=== PATIENT | male | born 1955 | race Caucasian/White ===

== ENCOUNTER → 2021-03-15 | Outpatient (CLI) | payer BC, OTHER | LOC: EXRD 14:29 | DX: N18.31 Chronic kidney disease, stage 3a (principal); N28.1 Cyst of kidney, acquired; R16.0 Hepatomegaly, not elsewhere classified | CPT/HCPCS: 76775 ==

== ENCOUNTER → 2021-05-31 | Outpatient (CLI) | payer BC, SELFPAY ==
[2021-06-01 10:16] LABS: CREATININE, URINE 59.1 mg/dL (Not Estab.)
== END ==
LOC: LAB 15:35
PROVIDERS: Internal Medicine Nephrology
DX: N18.31 Chronic kidney disease, stage 3a (principal)
CPT/HCPCS: 36415; 80053; 82043; 82570; 84156

== ENCOUNTER → 2021-10-11 | Outpatient (CLI) | payer BC, OTHER | LOC: KOH-I 14:04 | DX: R06.02 Shortness of breath (principal); R91.8 Other nonspecific abnormal finding of lung field | CPT/HCPCS: 71046 ==

== ENCOUNTER 2021-11-01 12:39 | Inpatient (IN) | payer BC, MEDICARE ==
[~2021-11-01] VITALS: Ht 172.7 cm; Wt 124.7 kg
[2021-11-01 13:42] LABS: HEMOGLOBIN 15.4 gm/dl (14.0-17.5); RED BLOOD COUNT 4.96 M/UL (4.20-5.50); WHITE BLOOD COUNT 6.8 K/UL (4.5-11.0)
[2021-11-01 14:20] LABS: BUN/CREATININE RATIO 13 (0-10)
[2021-11-01] MEDS ORDERED: CARVEDILOL6.25 MG PO (16:08)
[2021-11-01] MEDS ORDERED: DILT-XR180 MG PO (16:08)
[2021-11-01] MEDS ORDERED: CETIRIZINE HCL10 MG PO (16:09)
[2021-11-01] MEDS ORDERED: JARDIANCE25 MG PO (16:09)
[2021-11-01] MEDS ORDERED: GABAPENTIN100 MG PO (16:09)
[2021-11-01] MEDS ORDERED: FLOMAX 0.4 MG0.4 MG PO (16:09)
[2021-11-01] MEDS ORDERED: LOSARTAN POTASS50 MG PO (16:10)
[2021-11-02 07:43] LABS: HEMOGLOBIN 14.5 gm/dl (14.0-17.5); RED BLOOD COUNT 4.7 M/UL (4.20-5.50); WHITE BLOOD COUNT 3.6 K/UL (4.5-11.0)
[2021-11-03 06:27] LABS: HEMOGLOBIN 13.3 gm/dl (14.0-17.5); RED BLOOD COUNT 4.32 M/UL (4.20-5.50)
[2021-11-03 06:33] LABS: WHITE BLOOD COUNT 8.3 K/UL (4.5-11.0)
[2021-11-04 05:01] LABS: HEMOGLOBIN 13.1 gm/dl (14.0-17.5); RED BLOOD COUNT 4.32 M/UL (4.20-5.50); WHITE BLOOD COUNT 9.2 K/UL (4.5-11.0)
[2021-11-05 06:30] LABS: HEMOGLOBIN 13.7 gm/dl (14.0-17.5); RED BLOOD COUNT 4.66 M/UL (4.20-5.50); WHITE BLOOD COUNT 10.1 K/UL (4.5-11.0)
[2021-11-05 11:13] LABS: ANTISTREPTOLYSIN O AB 80.6 IU/mL (0.0-200.0); COMPLEMENT C3, SERUM 124 mg/dL (82-167); COMPLEMENT C4, SERUM 22 mg/dL (12-38)
[2021-11-05 12:13] LABS: HBSAG SCREEN Negative (Negative); HEP B CORE AB, TOT Negative (Negative); HEP C VIRUS AB <0.1 (0.0-0.9)
[2021-11-05 13:13] LABS: ANTI-DSDNA ANTIBODIES <1 IU/mL (0-9)
[2021-11-05 14:13] LABS: A/G RATIO 1.2 (0.7-1.7); ALPHA-1-GLOBULIN 0.3 g/dL (0.0-0.4); ALPHA-2-GLOBULIN 0.8 g/dL (0.4-1.0); BETA GLOBULIN 0.8 g/dL (0.7-1.3); GAMMA GLOBULIN 0.8 g/dL (0.4-1.8); GLOBULIN, TOTAL 2.7 g/dL (2.2-3.9); IMMUNOGLOBULIN A, QN, SERUM 250 mg/dL (61-437); IMMUNOGLOBULIN G, QN, SERUM 737 mg/dL (603-1613); IMMUNOGLOBULIN M, QN, SERUM 85 mg/dL (20-172); M-SPIKE Not Observed g/dL (Not Observed); PROTEIN, TOTAL, SERUM 5.7 g/dL (6.0-8.5)
[2021-11-05 16:14] LABS: ATYPICAL PANCA <1:20 titer (Neg:<1:20); CYTOPLASMIC (C-ANCA) <1:20 titer (Neg:<1:20); PERINUCLEAR (P-ANCA) <1:20 titer (Neg:<1:20)
[2021-11-06 07:27] LABS: HEMOGLOBIN 14.8 gm/dl (14.0-17.5); RED BLOOD COUNT 5.01 M/UL (4.20-5.50); WHITE BLOOD COUNT 9.7 K/UL (4.5-11.0)
[2021-11-07 03:37] LABS: HEMOGLOBIN 14.8 gm/dl (14.0-17.5); RED BLOOD COUNT 5.01 M/UL (4.20-5.50)
[2021-11-07 03:46] LABS: WHITE BLOOD COUNT 12.7 K/UL (4.5-11.0)
--- NOTE | 2021-11-08 01:40 | NUR ---
APPROX 2300 AT [employer] [facility] SPOKE WITH DR. HUFF AND VERIFIED THE LOVENOX 80MG DOSE FOR PT. VERIFIED TO ADMINSTERED IT.
[2021-11-08 03:11] LABS: HEMOGLOBIN 14.6 gm/dl (14.0-17.5); RED BLOOD COUNT 4.84 M/UL (4.20-5.50); WHITE BLOOD COUNT 12.8 K/UL (4.5-11.0)
[2021-11-09 09:01] LABS: HEMOGLOBIN 14.9 gm/dl (14.0-17.5); RED BLOOD COUNT 4.9 M/UL (4.20-5.50); WHITE BLOOD COUNT 11.5 K/UL (4.5-11.0)
--- NOTE | 2021-11-09 14:05 | NUR ---
PATIENT AMBULATED WITH ROOM AIR, AND SAT DROPPED TO 82% AND STAYED THERE UNTIL HE SAT BACK DOWN.
[2021-11-09] MEDS ORDERED: DECADRON6 MG PO (15:35)
[2021-11-09] MEDS ORDERED: OMNICEF 300 MG300 MG PO (15:35)
[2021-11-09] MEDS ORDERED: PROTONIX 40 MG40 M1 PO (15:35)
[2021-11-09] MEDS ORDERED: ELIQUIS 5 MG TAB5 MG GT (15:35)
[2021-11-09] MEDS ORDERED: ZITHROMAX500 MG PO (15:35)
[2021-11-09] MEDS ORDERED: IPRAT-ALBUT 0.5-3 ML NEB (15:35)
== END 2021-11-09 16:20 | disposition home or self-care (01) | DRG 177 ==
LOC: ER1 12:39 → MED SURG 4 15:06 → CDU 15:06 → MED SURG 4 16:03
PROVIDERS: Internal Medicine; Internal Medicine Nephrology; Nurse Practitioner; Physician Assistant Medical; ADMIT Internal Medicine
PROC: 8E0ZXY6 Isolation (ICD-10-PCS; principal; 2021-11-01)
PROC: XW033E5 Introduction of Remdesivir Anti-infective into Peripheral Vein, Percutaneous Approach, New Technology Group 5 (ICD-10-PCS; 2021-11-01)
PROC: 3E0333Z Introduction of Anti-inflammatory into Peripheral Vein, Percutaneous Approach (ICD-10-PCS; 2021-11-01)
PROC: XW033H5 Introduction of Tocilizumab into Peripheral Vein, Percutaneous Approach, New Technology Group 5 (ICD-10-PCS; 2021-11-01)
DX: U07.1 COVID-19 (principal); J96.01 Acute respiratory failure with hypoxia; J12.82 Pneumonia due to coronavirus disease 2019; I26.99 Other pulmonary embolism without acute cor pulmonale; N17.9 Acute kidney failure, unspecified; Z68.41 Body mass index [BMI] 40.0-44.9, adult; E78.5 Hyperlipidemia, unspecified; E11.65 Type 2 diabetes mellitus with hyperglycemia; T38.0X5A Adverse effect of glucocorticoids and synthetic analogues, initial encounter; E66.9 Obesity, unspecified; Z83.3 Family history of diabetes mellitus; J45.909 Unspecified asthma, uncomplicated; Z82.49 Family history of ischemic heart disease and other diseases of the circulatory system; I12.9 Hypertensive chronic kidney disease with stage 1 through stage 4 chronic kidney disease, or unspecified chronic kidney disease; N18.30 Chronic kidney disease, stage 3 unspecified; E11.22 Type 2 diabetes mellitus with diabetic chronic kidney disease; Z23 Encounter for immunization; R80.9 Proteinuria, unspecified
CPT/HCPCS: 36415; 36600; 71045; 78580; 80048; 80053; 81001; 82550; 82553; 82570; 82784; 82803; 82962; 83520; 83605; 83735; 83874; 83880; 83883; 84100; 84133; 84155; 84156; 84165; 84300; 84439; 84443; 84484; 85025; 85027; 85379; 85652; 86038; 86060; 86140; 86160; 86162; 86225; 86256; 86334; 86704; 86706; 86708; 86803; 87040; 87340; 93005; 93970; 94640; 94664; 94760; 96374; 97110-GP-CQ; 97116; 97116-GP-CQ; 97161; 97165; 97530-GP-CQ; 99285; A9540; J0248; J0456; J0696; J1100; J1650; J1940; J7030; P9047; Q0249; U0002

== ENCOUNTER → 2021-11-12 | Outpatient (CLI) | payer BC, MEDICARE ==
[~2021-11-12] MED LIST: CARVEDILOL6.25 MG PO; CETIRIZINE HCL10 MG PO; DECADRON6 MG PO; DILT-XR180 MG PO; ELIQUIS 5 MG TAB5 MG GT; FLOMAX 0.4 MG0.4 MG PO; GABAPENTIN100 MG PO; IPRAT-ALBUT 0.5-3 ML NEB; JARDIANCE25 MG PO; LOSARTAN POTASS50 MG PO; OMNICEF 300 MG300 MG PO; PROTONIX 40 MG40 M1 PO; ZITHROMAX500 MG PO
[2021-11-12 14:25] LABS: HEMOGLOBIN 15.7 gm/dl (14.0-17.5); RED BLOOD COUNT 5.14 M/UL (4.20-5.50); WHITE BLOOD COUNT 6.4 K/UL (4.5-11.0)
== END ==
LOC: LAB 13:19
PROVIDERS: Student in an Organized Health Care Education/Training Program
DX: U07.1 COVID-19 (principal)
CPT/HCPCS: 36415; 80053; 85025

== ENCOUNTER → 2022-01-16 | Outpatient (CLI) | payer BC, MEDICARE | LOC: HEART 5 14:58 | DX: R06.02 Shortness of breath (principal) | CPT/HCPCS: 71046; 94060; 94729 ==

== ENCOUNTER → 2022-01-28 | Outpatient (CLI) | payer BC, MEDICARE | LOC: HEART 5 08:44 | DX: I20.9 Angina pectoris, unspecified (principal); I48.91 Unspecified atrial fibrillation; I07.1 Rheumatic tricuspid insufficiency | CPT/HCPCS: 78452; 93306; A9502; J2785 ==